=== PATIENT | male | born 1965 | race Hispanic/Latino ===

== ENCOUNTER 2017-11-24 22:33 | Emergency (ER) | payer BC ==
[2017-11-24 23:05] LABS: Prothrombin Time 13.3 SEC (12.0-14.7)
[2017-11-24 23:06] LABS: PTT 32.8 SEC (22.9-36.1)
--- NOTE | 2017-11-24 23:09 | RAD ---
CHEST TWO VIEWS: 11/24/17 HISTORY: Chest pain. COMPARISON: 03/22/03 study. Heart size and mediastinum are within normal limits. The lungs are clear of infiltrates. No significa nt bony findings. IMPRESSION: No active intrathoracic disease. POS: [facility]
[2017-11-24 23:20] LABS: ALT (SGPT) 24 U/L (8-55); AST (SGOT) 21 U/L (5-34); Albumin 3.8 g/dL (3.5-5.0); Alkaline Phosphatase 163 U/L (40-150); Anion Gap 14 mmol/L (10-20); BUN (Urea Nitrogen) 14 mg/dL (8.4-25.7); Bilirubin, Total 0.4 mg/dL (0.2-1.2); CK (CPK) 82 U/L (30-200); Calc. Creatinine Clearance 0 mL/min (70-130); Calcium 9.7 mg/dL (7.8-10.44); Carbon Dioxide 26 mmol/L (22-29); Chloride 101 mmol/L (98-107); Estimated GFR-MDRD 90; Globulin 3.4 g/dL (2.4-3.5); Glucose 408 mg/dL (70-105); Potassium 3.7 mmol/L (3.5-5.1); Protein, Total 7.2 g/dL (6.0-8.3); Sodium 137 mmol/L (136-145)
[2017-11-24 23:25] LABS: CKMB 1.5 ng/mL (0-6.6)
[2017-11-25] MEDS ORDERED: hydrALAZINE 25 MG TAB ONE (02:24)
== END 2017-11-25 02:38 | disposition home or self-care (01) ==
LOC: ERS 22:33
DX: R07.9 Chest pain, unspecified (principal); E11.65 Type 2 diabetes mellitus with hyperglycemia; I10 Essential (primary) hypertension
CPT/HCPCS: 36415; 36416; 71046; 80053; 82553; 83880; 84484; 85610; 85730; 93005

== ENCOUNTER 2019-02-14 07:30 | Outpatient (CLI) | payer BC ==
--- NOTE | 2019-02-14 10:34 | MRI ---
MRI RIGHT KNEE: Date: 02/14/19 PROVIDED CLINICAL HISTORY: Right knee pain. FINDINGS: The anterior cruciate ligament, posterior cruciate ligament, medial collateral ligament, and lateral collateral ligamentous complex demonstrate an intact MR appearance, as does the extensor mechanism. There is a complex nondisplaced tear involving the body and posterior horn of the medial meniscus. Th e lateral meniscus demonstrates no evidence for tear. No focal articular cartilage defect is apparent. There is a small knee joint effusion. Mild marrow signal alteration at the medial aspect of the medial tibial plaque, likely reactive to th e meniscal tear. No focal concerning regional marrow or muscular signal abnormality apparent. IMPRESSION: 1. Complex nondisplaced body and posterior horn medial meniscal tear. 2. Small knee joint effusion. POS: OFF
== END 2019-02-14 07:31 | disposition home or self-care (01) ==
LOC: BICMRI 07:30
PROVIDERS: ATTEND Orthopaedic Surgery
DX: S83.241A Other tear of medial meniscus, current injury, right knee, initial encounter (principal); M25.461 Effusion, right knee

== ENCOUNTER 2019-06-27 15:00 | Outpatient (CLI) | payer BC ==
[2019-06-27 16:58] LABS: #Basophils 0.1 thou/uL (0.0-0.2); #Eosinphils 0.1 thou/uL (0.0-0.7); #Lymphocytes 4.1 thou/uL (1.20-3.40); #Monocytes 0.9 thou/uL (0.11-0.59); #Neutrophils 7.9 thou/uL (1.40-6.50); %Basophils 0.5 % (0.0-1.0); %Eosinophils 0.7 % (0.0-10.0); %Lymphocytes 31.6 % (21.0-51.0); %Monocytes 6.8 % (0.0-10.0); %Neutrophils 60.4 % (42.0-75.0); Mean Corpuscular HGB CONC 34.6 g/dL (32.0-36.0); Mean Corpuscular Hemoglobin 32.2 pg (27.0-31.0); Mean Platelet Volume 7.9 fL (7.4-10.4); Platelet Count 237 thou/uL (130-400); RBC Distribution Width 11.8 % (11.5-14.5); Red Blood Cell (RBC) Count 4.98 mill/uL (4.70-6.10)
[2019-06-27 17:17] LABS: Anion Gap 14 mmol/L (10-20); BUN (Urea Nitrogen) 14 mg/dL (8.4-25.7); Calc. Creatinine Clearance 0 mL/min (70-130); Calcium 9.6 mg/dL (7.8-10.44); Carbon Dioxide 27 mmol/L (22-29); Chloride 103 mmol/L (98-107); Estimated GFR-MDRD Greater than 90; Glucose 140 mg/dL (70-105); Potassium 3.7 mmol/L (3.5-5.1); Sodium 140 mmol/L (136-145)
== END 2019-06-27 15:01 | disposition home or self-care (01) ==
LOC: LABBT 15:00
PROVIDERS: ATTEND Orthopaedic Surgery
DX: Z01.818 Encounter for other preprocedural examination (principal); S83.241A Other tear of medial meniscus, current injury, right knee, initial encounter
CPT/HCPCS: 80048; 85025; 93005; 93010

== ENCOUNTER 2019-07-06 06:25 | Day surgery (SDC) | payer BC ==
[2019-06-27 16:07] VITALS: BMI 48.7
[2019-07-06] MEDS ORDERED: PROPOFOL 20 ML ONE (07:52)
[2019-07-06] MEDS ORDERED: Fentanyl 100 MCG/2 ML VIAL ONE (08:56)
[2019-07-06] MEDS ORDERED: Bupivacaine HCl 0.5%/Epinephrine 1:200,000/PF 30 ml Vial ONE (09:46)
[2019-07-06] MEDS ORDERED: PROPOFOL 200 MG/20 ML VIAL ONE (09:46)
[2019-07-06] MEDS ORDERED: Ketorolac Tromethamine 30 MG/ML VIAL ONE (09:46)
[2019-07-06] MEDS ORDERED: Lidocaine 2% w/Epinephrine 1:200K 20 ML VIAL ONE (09:46)
[2019-07-06] MEDS ORDERED: Lidocaine 1% PF 5 ML VIAL ONE (09:46)
[2019-07-06] MEDS ORDERED: Albuterol Sulfate 2.5 mg/3 ml Neb ONE (10:10)
--- NOTE | 2019-07-09 09:16 | OP ---
DATE OF PROCEDURE: 07/06/2019 PREOPERATIVE DIAGNOSIS: Medial meniscus tear, right knee. POSTOPERATIVE DIAGNOSIS: Medial meniscus tear, right knee. PROCEDURE PERFORMED: Arthroscopic partial medial meniscectomy. 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 The scope was placed in the lateral portal, probe was placed in the medial portal. Findings were as above. I used a basket forceps to remove most of the posterior portion of the medial meniscus. I then smoothed this using a 4-0 full-radius resector. I probed the remaining meniscus to confirm it was stable. The gutters were swept for loose bodies. Multiple tiny loose bodies were removed from the suprapatellar pouch. The knee was irrigated and drained. Sterile dressings applied. Job ID: [id number]
== END 2019-07-06 11:30 | disposition home or self-care (01) ==
LOC: SDC 06:25
PROVIDERS: ATTEND Orthopaedic Surgery
PROC: 0SBC4ZZ Excision of Right Knee Joint, Percutaneous Endoscopic Approach (ICD-10-PCS; principal; 2019-07-06)
DX: S83.231A Complex tear of medial meniscus, current injury, right knee, initial encounter (principal); M22.41 Chondromalacia patellae, right knee; I10 Essential (primary) hypertension; E78.5 Hyperlipidemia, unspecified; E11.9 Type 2 diabetes mellitus without complications; E66.01 Morbid (severe) obesity due to excess calories; Z68.42 Body mass index [BMI] 45.0-49.9, adult; Z79.82 Long term (current) use of aspirin; Z79.84 Long term (current) use of oral hypoglycemic drugs; Z79.899 Other long term (current) drug therapy; Z88.8 Allergy status to other drugs, medicaments and biological substances; Z98.890 Other specified postprocedural states; X58.XXXA Exposure to other specified factors, initial encounter
CPT/HCPCS: J0670; J0690; J1885; J2001; J2704; J3010; J7611